=== PATIENT | female | born 1985 | race Hispanic/Latino ===

== ENCOUNTER 2018-09-10 08:24 | Emergency (ER) | payer MEDICAID ==
[2018-09-10 09:00] LABS: APPEARANCE,URINE Clear (CLEAR); BILIRUBIN,URINE Negative (NEGATIVE); COLOR,URINE Dark Yellow (YELLOW); GLUCOSE, URINE (UA) Negative (NEGATIVE); KETONES,URINE Negative (NEGATIVE); LEUKOCYTE ESTERASE ,URINE Negative (NEGATIVE); NITRATE,URINE Negative (NEGATIVE); OCCULT BLOOD,URINE Negative (NEGATIVE); PH,URINE 5.5 (5.0-8.0); PROTEIN,URINE Negative (NEGATIVE)
[2018-09-10] MEDS ORDERED: ONDANSETRON ODT 4 MG TAB ONE (09:03)
[2018-09-10 09:08] LABS: HCG,QUAL RESULT NEGATIVE (NEGATIVE)
== END 2018-09-10 09:10 | disposition home or self-care (01) ==
LOC: EDH 08:24
DX: A08.4 Viral intestinal infection, unspecified (principal)
CPT/HCPCS: 81003; 81025

== ENCOUNTER 2020-12-28 00:30 | Emergency (ER) | payer MEDICAID ==
[~2020-12-28] VITALS: Ht 157.5 cm; Wt 78.0 kg
[2020-12-28 00:32] VITALS: BP 102/71
== END 2020-12-28 02:20 | disposition home or self-care (01) ==
LOC: EDH 00:30
DX: R10.13 Epigastric pain (principal)

== ENCOUNTER 2022-01-09 21:18 | Emergency (ER) | payer MEDICAID ==
[~2022-01-09] VITALS: Ht 157.5 cm; Wt 69.9 kg
[2022-01-09 21:19] VITALS: BP 118/64
[2022-01-09] MEDS ORDERED: LORAZEPAM 1 MG TABLET PO ONE (22:00)
== END 2022-01-09 22:11 | disposition home or self-care (01) ==
LOC: EDH 21:18
DX: H53.141 Visual discomfort, right eye (principal)
CPT/HCPCS: 99281; 99282